=== PATIENT | female | born 1950 | race Hispanic/Latino ===

== ENCOUNTER → 2017-06-30 | Outpatient (CLI) | payer OTHER | END | disposition home or self-care (01) | LOC: RAH 10:37 | PROVIDERS: ATTEND Orthopaedic Surgery | DX: M25.461 Effusion, right knee (principal); M17.11 Unilateral primary osteoarthritis, right knee | CPT/HCPCS: 73721 ==

== ENCOUNTER → 2018-05-27 | Outpatient (CLI) | payer OTHER | END | disposition home or self-care (01) | LOC: RAH 10:47 | PROVIDERS: ATTEND Orthopaedic Surgery | DX: M47.817 Spondylosis without myelopathy or radiculopathy, lumbosacral region (principal); M51.27 Other intervertebral disc displacement, lumbosacral region | CPT/HCPCS: 72148 ==

== ENCOUNTER → 2019-01-06 | Outpatient (CLI) | payer OTHER | END | disposition home or self-care (01) | LOC: OIH 10:07 | PROVIDERS: ATTEND Family Medicine | DX: M79.642 Pain in left hand (principal) | CPT/HCPCS: 73130 ==

== ENCOUNTER → 2019-04-10 | Outpatient (CLI) | payer OTHER | END | disposition home or self-care (01) | LOC: OIH 12:09 | PROVIDERS: ATTEND Family Medicine | DX: M19.042 Primary osteoarthritis, left hand (principal); M25.561 Pain in right knee | CPT/HCPCS: 73130; 73562 ==

== ENCOUNTER 2020-09-04 06:17 | Observation (INO) | payer OTHER ==
[2020-08-30 10:30] LABS: BASOPHILS % (AUTO) 1.4 % (0.0-5.0); EOSINOPHILS % (AUTO) 2.6 % (0.0-8.0); HEMATOCRIT 36.4 % (36-48); LYMPHOCYTES % (AUTO) 33.6 % (21.0-51.0); MEAN CORPUSCULAR HEMOGLOBIN 24.8 pg (27.0-33.0); MEAN CORPUSCULAR HGB CONC 30.8 g/dL (32.0-36.0); MEAN CORPUSCULAR VOLUME 80.7 fL (79-99); MONOCYTES % (AUTO) 7.5 % (3.0-13.0); NEUTROPHILS % (AUTO) 54.6 % (40.0-77.0); PLATELET COUNT (AUTO) 230 K/uL (130-400); RED BLOOD CELL COUNT(AUTO) 4.51 MIL/uL (4.00-5.50); RED CELL DISTRIBUTION WIDTH 14.6 % (11.0-15.5); WHITE BLOOD COUNT (AUTO) 5.8 K/uL (4.8-10.8)
[2020-08-30 10:41] LABS: CREATININE 0.7 mg/dL (0.5-1.5); POTASSIUM 4.9 mmol/L (3.5-5.1)
[2020-09-03 12:25] VITALS: BP 134/68
[2020-09-04] VITALS (30 sets, daily range): BP systolic 91–153; BP diastolic 42–76
[~2020-09-04] VITALS: Ht 157.5 cm; Wt 76.7 kg
[2020-09-04] MEDS: CEFAZOLIN SODIUM 1 GM VIAL IVP SCH ×3 (06:00→20:05)
[~2020-09-04 06:17] MED LIST: ATOR10 PO; DIAZ10TA4 PO; LISI10TA24 PO; LORATADINE 10 MG TABLET PO SCH; METF-444 PO; SERT-439 PO
[2020-09-04] MEDS ORDERED: 0.9%NACL 1000ML 1,000 ML IV ONE (07:31)
[2020-09-04] MEDS ORDERED: CEFAZOLIN SODIUM 1 GM VIAL ONE (07:50)
[2020-09-04] MEDS ORDERED: TRANEXAMIC ACID 1000MG/10ML ONE (09:01)
[2020-09-04] MEDS ORDERED: ROPIVACAINE 0.5% 5MG/ML 30ML IJ ONE (10:07)
[2020-09-04] MEDS ORDERED: MIDAZOLAM HCL 1 MG/ML 5ML VIAL ONE (10:07)
[2020-09-04] MEDS ORDERED: PROPOFOL 10 MG/ML 20ML VIAL IV ONE (10:14)
[2020-09-04] MEDS ORDERED: ROCURONIUM 10MG/1ML SYR 10 MG/ML ML ONE (10:14)
[2020-09-04] MEDS ORDERED: EPHEDRINE SULFATE 50 MG/ML AMPULE ONE (11:04)
[2020-09-04] MEDS ORDERED: FENTANYL CITRATE PF 50 MCG/1 ML 2ML VIAL ONE (11:55)
[2020-09-04] MEDS ORDERED: GLYCOPYRROLATE 1 MG/5 ML SYRINGE ONE (12:22)
[2020-09-04] MEDS ORDERED: NEOSTIGMINE 5MG/5ML SYR IV ONE (12:22)
[2020-09-04] MEDS ORDERED: ONDANSETRON 4MG INJ ONE (12:42)
[2020-09-04] MEDS: ACETAMINOPHEN 500 MG TABLET PO SCH ×2 (13:00→20:06)
[2020-09-04] MEDS ORDERED: POTASSIUM CHLORIDE 10% ELIXIR 20 MEQ/15 ML UDCUP PO PRN (13:00)
[2020-09-04] MEDS ORDERED: LIDOCAINE HCL-MPF 1% 2ML VIAL IV PRN (13:00)
[2020-09-04] MEDS ORDERED: CALCIUM CARB 500MG PO PRN (13:00)
[2020-09-04] MEDS ORDERED: OXYCODONE HCL 5 MG TAB PO PRN (13:00)
[2020-09-04] MEDS ORDERED: FERROUS FUMARATE 324 MG TABLET PO PRN (13:00)
[2020-09-04] MEDS ORDERED: ONDANSETRON 4MG INJ IVP PRN (13:00)
[2020-09-04] MEDS ORDERED: KETOROLAC 15MG/ML VIAL (15MG/ML) IV PRN (13:00)
[2020-09-04] MEDS ORDERED: DiphenhydrAMINE HCL 50 MG/ML VIAL IVP PRN (13:00)
[2020-09-04] MEDS ORDERED: POTASSIUM CHLORIDE 20MEQ/100ML 100 ML IV PRN (13:00)
[2020-09-04] MEDS ORDERED: TRAMADOL HCL 50 MG TABLET PO PRN (13:00)
[2020-09-04] MEDS ORDERED: KCL 20 MEQ ERTAB PO PRN (13:00)
[2020-09-04] MEDS ORDERED: MEPERIDINE-PF 25 MG/ML SYG ONE ×2 (13:21→13:33)
[2020-09-04] MEDS: INSULIN HUMULIN R 100 UNIT/ML 3ML SQ SCH ×2 (16:30→20:06)
[2020-09-04] MEDS: 0.9%NACL 1000ML 1,000 ML IV SCH ×2 (17:38→23:00)
[2020-09-04] MEDS ORDERED: CEFAZOLIN SODIUM 1 GM VIAL IVP SCH (18:00)
[2020-09-04] MEDS: PREGABALIN 25 MG CAP PO SCH (20:03)
[2020-09-04] MEDS: OXYCODONE HCL 5 MG TAB PO PRN (20:04)
[2020-09-04] MEDS: CELECOXIB 200 MG CAP PO SCH (20:05)
[2020-09-04] MEDS: ASPIRIN 81MG CHEW TAB PO SCH (20:05)
[2020-09-04] MEDS: FAMOTIDINE 20MG TAB PO SCH (20:05)
[2020-09-04] MEDS: DIAZEPAM 5 MG TABLET PO SCH ×2 (21:00→23:08)
[2020-09-05] VITALS: BP 113/55
[2020-09-05 04:00] VITALS: BP 129/59
[2020-09-05] MEDS: OXYCODONE HCL 5 MG TAB PO PRN ×2 (04:02→08:53)
[2020-09-05] MEDS: CEFAZOLIN SODIUM 1 GM VIAL IVP SCH (04:03)
[2020-09-05 04:05] LABS: HEMATOCRIT 33.7 % (36-48); MEAN CORPUSCULAR HGB CONC 30.9 g/dL (32.0-36.0); RED BLOOD CELL COUNT(AUTO) 4.16 MIL/uL (4.00-5.50); RED CELL DISTRIBUTION WIDTH 14.6 % (11.0-15.5); WHITE BLOOD COUNT (AUTO) 7.7 K/uL (4.8-10.8)
[2020-09-05 04:10] LABS: CREATININE 0.6 mg/dL (0.5-1.5); POTASSIUM 4.3 mmol/L (3.5-5.1)
[2020-09-05] MEDS: ACETAMINOPHEN 500 MG TABLET PO SCH ×3 (04:18→21:14)
[2020-09-05] MEDS: INSULIN HUMULIN R 100 UNIT/ML 3ML SQ SCH ×4 (06:19→21:00)
[2020-09-05 07:45] VITALS: BP 117/59
[2020-09-05] MEDS: POLYETHYLENE GLYCOL 3350 17 GM POWD.PACK PO SCH (08:51)
[2020-09-05] MEDS: PREGABALIN 25 MG CAP PO SCH ×2 (08:51→21:14)
[2020-09-05] MEDS: SERTRALINE HCL 50 MG TABLET PO SCH (08:54)
[2020-09-05] MEDS: CELECOXIB 200 MG CAP PO SCH ×2 (08:54→21:13)
[2020-09-05] MEDS: ATORVASTATIN 10 MG TABLET PO SCH (08:54)
[2020-09-05] MEDS: ASPIRIN 81MG CHEW TAB PO SCH ×2 (08:54→21:13)
[2020-09-05] MEDS: LISINOPRIL 10 MG TABLET PO SCH (08:55)
[2020-09-05] MEDS: METFORMIN HCL 500 MG TABLET PO SCH (08:55)
[2020-09-05] MEDS: FAMOTIDINE 20MG TAB PO SCH ×2 (08:55→21:13)
[2020-09-05] MEDS: 0.9%NACL 1000ML 1,000 ML IV SCH (08:58)
[2020-09-05 11:00] VITALS: BP 89/42
[2020-09-05 16:00] VITALS: BP 97/48
[2020-09-05 19:53] VITALS: BP 90/51
[2020-09-05] MEDS: DIAZEPAM 5 MG TABLET PO SCH (22:08)
[2020-09-06 00:12] VITALS: BP 94/48
[2020-09-06 03:15] VITALS: BP 84/45
[2020-09-06] MEDS: INSULIN HUMULIN R 100 UNIT/ML 3ML SQ SCH ×2 (05:44→12:40)
[2020-09-06] MEDS: ACETAMINOPHEN 500 MG TABLET PO SCH ×2 (05:55→15:44)
[2020-09-06 07:30] VITALS: BP 93/49
[2020-09-06] MEDS: LISINOPRIL 10 MG TABLET PO SCH (09:00)
[2020-09-06] MEDS: CELECOXIB 200 MG CAP PO SCH (10:13)
[2020-09-06] MEDS: ATORVASTATIN 10 MG TABLET PO SCH (10:13)
[2020-09-06] MEDS: PREGABALIN 25 MG CAP PO SCH (10:13)
[2020-09-06] MEDS: ASPIRIN 81MG CHEW TAB PO SCH (10:13)
[2020-09-06] MEDS: SERTRALINE HCL 50 MG TABLET PO SCH (10:14)
[2020-09-06] MEDS: POLYETHYLENE GLYCOL 3350 17 GM POWD.PACK PO SCH (10:14)
[2020-09-06] MEDS: FAMOTIDINE 20MG TAB PO SCH (10:14)
[2020-09-06] MEDS: METFORMIN HCL 500 MG TABLET PO SCH (10:14)
[2020-09-06 11:00] VITALS: BP 93/53
[2020-09-06 16:00] VITALS: BP 92/56
[2020-09-06] MEDS ORDERED: HYDR-4060 PO (18:33)
[2020-09-06] MEDS ORDERED: ASPI-1005 PO (18:33)
[2020-09-07] MEDS ORDERED: BISACODYL 10 MG SUPP.RECT RC PRN (13:00)
== END 2020-09-06 20:23 | disposition home health service (06) ==
LOC: DAH 06:17 → DAHIP 06:18 → DAH 06:18 → 4BH 16:51
PROVIDERS: ADMIT Orthopaedic Surgery; ATTEND Orthopaedic Surgery
DX: M25.361 Other instability, right knee (principal); Z20.822 Contact with and (suspected) exposure to COVID-19; G89.29 Other chronic pain; M65.861 Other synovitis and tenosynovitis, right lower leg; I10 Essential (primary) hypertension; E11.9 Type 2 diabetes mellitus without complications; E78.5 Hyperlipidemia, unspecified; I95.81 Postprocedural hypotension; M19.90 Unspecified osteoarthritis, unspecified site; M81.0 Age-related osteoporosis without current pathological fracture; R42 Dizziness and giddiness; Z96.651 Presence of right artificial knee joint; Z90.49 Acquired absence of other specified parts of digestive tract; Z90.710 Acquired absence of both cervix and uterus; Z79.899 Other long term (current) drug therapy; Z98.890 Other specified postprocedural states
CPT/HCPCS: 27333; 36415 ×2; 80048 ×2; 82948 ×9; 85025; 85027; 87635; 93005; 96361; 96374; 96375; 96376; 97039 ×4; 97116 ×4; 97161; 97530 ×4; A4215; A4221; A4222; A4223; A4649 ×5; A4663; A4930 ×2; A5120; C1776; C9803; G0378 ×53; G8978; G8979; G8980; G8981; G8982; G8983; J0690 ×4; J1815 ×2; J2175 ×2; J2250; J2405 ×2; J2704; J2710; J2795; J3010; J3490 ×3; J7030 ×2

== ENCOUNTER 2021-05-09 15:37 | Emergency (ER) | payer OTHER ==
[~2021-05-09] VITALS: Ht 167.6 cm; Wt 72.1 kg
[~2021-05-09 15:37] MED LIST changes: +ASPI-1005 PO; +HYDR-4060 PO; -LISI10TA24 PO; -LORATADINE 10 MG TABLET PO SCH
[2021-05-09 15:39] VITALS: BP 139/99
[2021-05-09] MEDS ORDERED: ACETAMINOPHEN 500 MG TABLET PO ONE (16:30)
[2021-05-09] MEDS ORDERED: ACET-2247 PO (17:28)
== END 2021-05-09 18:00 | disposition home or self-care (01) ==
LOC: EDH 15:37
DX: S93.602A Unspecified sprain of left foot, initial encounter (principal); E11.9 Type 2 diabetes mellitus without complications; E78.00 Pure hypercholesterolemia, unspecified; Z79.82 Long term (current) use of aspirin; Z79.84 Long term (current) use of oral hypoglycemic drugs; Z79.899 Other long term (current) drug therapy; X58.XXXA Exposure to other specified factors, initial encounter; Y93.89 Activity, other specified; Y92.89 Other specified places as the place of occurrence of the external cause; Y99.8 Other external cause status
CPT/HCPCS: 73610; 73630